=== PATIENT | female | born 1975 | race Caucasian/White ===

== ENCOUNTER → 2020-02-08 12:02 | Outpatient (CLI) | payer OTHER, SELFPAY ==
--- NOTE | ~2020-02-08 | MM_ITS ---
EXAMINATION: MM screening kathrin BI w corrina HISTORY: Screening mammogram TECHNIQUE: Craniocaudal and mediolateral oblique 3-D tomosynthesis images were obtained and synthetic 2-D images were generated. CAD analysis was submitted and interpreted. COMPARISON: 09/12/2016 BREAST PARENCHYMAL COMPOSITION: The breasts are almost entirely fatty. FINDINGS: There is no evidence of suspicious mass, calcification, or architectural distortion to sugg est malignancy in either breast. There has been no suspicious interval change. IMPRESSION: 1. No mammographic evidence of malignancy. 2. Recommend routine screening mammography in one year. BI-RADS Category 1: Negative Reviewed, dictated and finalized at location [facility]
== END ==
PROVIDERS: PCP Family Medicine; Visit Provider Obstetrics & Gynecology Gynecology
DX: Z12.31 Encounter for screening mammogram for malignant neoplasm of breast (principal)
CPT/HCPCS: 77063; 77067

== ENCOUNTER 2023-06-22 16:22 | Emergency (ER) | payer OTHER, SELFPAY ==
[2023-06-22 16:26] VITALS: BP 123/84; PULSE 72; RESP 20; TEMP 36.4; O2SAT 100
--- NOTE | 2023-06-22 17:31 | ED.GENADULT ---
HPI - General Adult General Chief complaint: Urogenital-Female Stated complaint: poss uti Time Seen by Provider: 06/22/23 16:46 Source: patient, RN notes reviewed and old records reviewed Mode of arrival: ambulatory Limitations: no limitations History of Present Illness HPI narrative: 48-year-old female to [facility] for complaint burning with urination, left flank discomfort, nocturia, and bladder fullness for 3 days. Patient reports hematuria that began today. Patient reports history of diabetes. 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 patient denies fever, nausea, vomiting, abdominal pain. Patient able to tolerate fluids by mouth. Related Data Home Medications Medication Instructions Recorded Confirmed amlodipine 2.5 mg tablet 2.5 mg PO DAILY 06/22/23 06/22/23 ezetimibe 10 mg tablet 10 mg PO DAILY 06/22/23 06/22/23 hydroxyzine HCl 10 mg tablet 10 mg PO BID 06/22/23 06/22/23 levothyroxine 125 mcg tablet 125 mcg PO DAILY 06/22/23 06/22/23 (Synthroid) metformin 500 mg tablet 500 mg PO TID 06/22/23 06/22/23 semaglutide 1 mg/dose (4 mg/3 mL) 1 mg subcut WEEKLY 06/22/23 06/22/23 subcutaneous pen injector (Ozempic) Allergies Allergy/AdvReac Type Severity Reaction Status Date / Time sulfanilamide Allergy Unknown Unknown Verified 06/22/23 16:45 Sulfa (Sulfonamide AdvReac Severe Rash Verified 06/22/23 16:45 Antibiotics) Review of Systems Review of Systems: All systems reviewed & are unremarkable except as noted in HPI and below Constitutional: Constitutional: Reports as per HPI and Denies fever(s) Eyes: Eyes: Reports no additional eye complaints ENT: Reports system reviewed and no additional complaints, except as documented Cardiovascular: Cardiovascular: Reports no additional cardiovascular complaints, Denies chest pain and Denies dyspnea Respiratory: Respiratory: Reports no additional respiratory complaints, Denies cough and Denies dyspnea Gastrointestinal: Gastrointestinal: Reports as per HPI and Denies abdominal pain Genitourinary: Genitourinary: Reports as per HPI, Reports hematuria, Reports nocturia, Reports dysuria, Denies pelvic pain, Reports flank pain, Denies urinary incontinence and Reports urinary urgency Musculoskeletal: Musculoskeletal: Reports no additional musculoskeletal complaints Neurologic: Reports system reviewed and no additional complaints, except as documented Psychiatric: Psychiatric: Reports no additional psychiatric complaints PMFSH Past Medical History Medical History Essential hypertension Hypothyroidism, unspecified Pure hypercholesterolemia, unspecified Type 2 diabetes mellitus with hyperglycemia, without long-term current use of insulin Family History Family History Father Family history of elevated blood lipids Other Cerebrovascular accident Depression Family history of Alzheimer's disease Family history of arthritis Family history of cardiovascular disease Family history of glaucoma Family history of hearing loss Family history of migraine headaches Family history of osteoporosis Family history of seizure disorder Hypertension Social History Social History Smoking status: Never smoker Second hand tobacco smoke exposure: No Alcohol intake: never Comments At the time of my signature, I reviewed and agree with the nursing past medical, surgical, social, and family history. There is no relevant family history pertinent to the patient complaint. Exam Const: General: cooperative, healthy appearing, comfortable, no acute distress, alert and well nourished Nutritional Appearance: well nourished Orientation/consciousness: patient oriented x3 Limitations: no limitations HENMT: Head: normal t
== END 2023-06-22 17:15 | disposition home or self-care (01) ==
PROVIDERS: Emergency Provider Nurse Practitioner Family
DX: N39.0 Urinary tract infection, site not specified (principal); B96.1 Klebsiella pneumoniae [K. pneumoniae] as the cause of diseases classified elsewhere; I10 Essential (primary) hypertension; E03.9 Hypothyroidism, unspecified; E78.00 Pure hypercholesterolemia, unspecified; E11.9 Type 2 diabetes mellitus without complications; Z79.84 Long term (current) use of oral hypoglycemic drugs
CPT/HCPCS: 81003; 87077; 87086; 87088; 87186; 99213; G0463

== ENCOUNTER 2023-11-24 08:02 | Emergency (ER) | payer OTHER, SELFPAY ==
[2023-11-24 08:07] VITALS: BP 154/99; PULSE 72; RESP 16; TEMP 36.6; O2SAT 100
--- NOTE | 2023-11-24 08:12 | ED.FEMALEGU ---
HPI - Female Genitourinary General Chief complaint: Urogenital-Female Stated complaint: Urinary Problelm Time Seen by Provider: 11/24/23 08:12 Source: patient Mode of arrival: ambulatory Limitations: no limitations History of Present Illness HPI Narrative: 48-year-old female presents with complaint of urinary frequency, urgency, dysuria, suprapubic pressure starting yesterday. Denies nausea vomiting. Afebrile. Patient concern for urinary tract infection. Did take a dose of azo prior to arrival. All systems reviewed and negative except as noted above. Related Data Home Medications Medication Instructions Recorded Confirmed amlodipine 2.5 mg tablet 2.5 mg PO DAILY 06/22/23 11/24/23 ezetimibe 10 mg tablet 10 mg PO DAILY 06/22/23 11/24/23 hydroxyzine HCl 10 mg tablet 10 mg PO BID 06/22/23 11/24/23 levothyroxine 125 mcg tablet 125 mcg PO DAILY 06/22/23 11/24/23 (Synthroid) metformin 500 mg tablet 500 mg PO TID 06/22/23 11/24/23 semaglutide 1 mg/dose (4 mg/3 mL) 1 mg subcut WEEKLY 06/22/23 11/24/23 subcutaneous pen injector (Ozempic) Allergies Allergy/AdvReac Type Severity Reaction Status Date / Time sulfanilamide Allergy Unknown Unknown Verified 11/24/23 08:13 amoxicillin [From Augmentin] Allergy Rash Verified 11/24/23 08:13 clavulanic acid Allergy Rash Verified 11/24/23 08:13 [From Augmentin] Sulfa (Sulfonamide AdvReac Severe Rash Verified 11/24/23 08:13 Antibiotics) Review of Systems Review of Systems: CONSTITUTIONAL: Denies fever, chills, or sweats. EYES: Denies visual changes, redness, or discharge. ENT: Denies rhinorrhea, congestion, sore throat, or otalgia. CARDIOVASCULAR: Denies chest pain, palpitations, or edema. RESPIRATORY: Denies cough or dyspnea. GASTROINTESTINAL: Denies abdominal pain, nausea, vomiting, or diarrhea. GENITOURINARY: Reports dysuria, frequency, urgency. Denies hematuria. SKIN: Denies rash or itching. MUSCULOSKELETAL: Denies back pain, joint pain, or myalgia. NEUROLOGIC: Denies headache, numbness, or weakness. PSYCHIATRIC: Denies anxiety or depression. All other systems reviewed are negative, except as documented in HPI. [facility] Past Medical History Medical History Essential hypertension Hypothyroidism, unspecified Pure hypercholesterolemia, unspecified Type 2 diabetes mellitus with hyperglycemia, without long-term current use of insulin Family History Family History Father Family history of elevated blood lipids Other Cerebrovascular accident Depression Family history of Alzheimer's disease Family history of arthritis Family history of cardiovascular disease Family history of glaucoma Family history of hearing loss Family history of migraine headaches Family history of osteoporosis Family history of seizure disorder Hypertension Social History Social History Smoking status: Never smoker Second hand tobacco smoke exposure: No Alcohol intake: never Comments At time of signature, agree with nursing past medical, surgical, social and family history. There is no relevant family history pertinent to the presenting complaint. Exam Narrative: GENERAL: This is a well-nourished, well-developed patient, in no apparent distress. HEAD: normocephalic, atraumatic. EYES: PERRL. Sclera clear/white. Vision is grossly intact. EARS: External ears normal NOSE: External nose normal NECK: Neck supple, non-tender without lymphadenopathy, masses or thyromegaly. CARDIOVASCULAR: Regular rate and rhythm without murmurs, gallops, or rubs. RESPIRATORY: Clear to auscultation. Breath sounds equal bilaterally. No wheezes, rales, or rhonchi. SKIN: warm, Dry, intact with no suspicious lesions or rash, good texture and turgor. NEURO: awake, alert, and oriented to person, place
[2023-11-24 08:14] VITALS: BP 154/99; PULSE 72; RESP 16; TEMP 36.6; O2SAT 100
== END 2023-11-24 08:30 | disposition home or self-care (01) ==
PROVIDERS: Emergency Provider Nurse Practitioner Family
DX: N39.0 Urinary tract infection, site not specified (principal); I10 Essential (primary) hypertension; E03.9 Hypothyroidism, unspecified; E78.00 Pure hypercholesterolemia, unspecified; E11.9 Type 2 diabetes mellitus without complications; Z79.84 Long term (current) use of oral hypoglycemic drugs
CPT/HCPCS: 87086; 99213; G0463